=== PATIENT | female | born 1940 | race Caucasian/White ===

== ENCOUNTER → 2016-07-13 | Outpatient (CLI) | payer MEDICARE, BC ==
[~2016-07-13] MED LIST: ALPRAZOLAM0.5 MG PO; ARIMIDEX1 MG PO; ASPIRIN 81M81 MG/TA2 PO; CALCIUM 600 PLU1 TAB PO; CALCIUM 6001 TA1 PO; DIPYRIDAMOLE PO; LAMICTAL 100MG100 MG PO; LAMICTAL ODT50 MG TL; LAMICTAL XR50 MG PO; LIPITOR 10MG10 MG PO; MELAT3MGTAB PO; MELATONIN; MULTI VITAMINS1 TAB PO; MULTIPLE VITAMI1 TAB PO; NAMENDA 10MG TA10 MG PO; NAMENDA XR 28MG PO; NORCO 325 MG-51 TAB PO; NORMODYNE100 MG PO; OSCAL 500 TAB500 MG PO; PERSANTINE PO; PRILOSEC 20MG20 MG PO; TRANDATE 100MG100 MG PO; TYLENOL 325MG325 MG PO; UNKOWN; VITAMIN D 1001000 IU PO; VITAMIN D31000 IU PO; XANAX 0.5MG0.5 MG PO; ZOCOR 20MG20 MG PO; ZOCOR 40MG40 MG PO; ZOLOFT 25MG25 MG PO; ZOLOFT25 MG PO
== END ==
LOC: BHSO 13:56
DX: F31.81 Bipolar II disorder (principal)

== ENCOUNTER → 2016-09-05 | Outpatient (CLI) | payer MEDICARE, BC | LOC: MC.RAD 10:50 | DX: Z12.31 Encounter for screening mammogram for malignant neoplasm of breast (principal) ==

== ENCOUNTER → 2017-04-11 | Outpatient (CLI) | payer MEDICARE, BC | LOC: BHSO 14:54 | DX: F31.73 Bipolar disorder, in partial remission, most recent episode manic (principal) ==

== ENCOUNTER → 2017-09-06 | Outpatient (CLI) | payer MEDICARE, BC | LOC: MC.RAD 11:19 | DX: Z12.31 Encounter for screening mammogram for malignant neoplasm of breast (principal); Z98.890 Other specified postprocedural states ==

== ENCOUNTER → 2018-02-15 | Outpatient (CLI) | payer MEDICARE, BC | LOC: BHSO 13:22 | DX: F33.42 Major depressive disorder, recurrent, in full remission (principal) | CPT/HCPCS: G0463 ==

== ENCOUNTER → 2018-08-15 | Outpatient (CLI) | payer MEDICARE, BC | LOC: BHSO 13:01 | DX: F33.42 Major depressive disorder, recurrent, in full remission (principal) | CPT/HCPCS: G0463 ==

== ENCOUNTER 2018-08-31 13:48 | Outpatient (CLI) | payer MEDICARE, BC ==
[2018-08-31 15:10] VITALS: BP 104/60; PULSE 70; TEMP 98
[2018-08-31] MEDS ORDERED: RECLAST5 MG/100 M IV (17:32)
== END 2018-08-31 15:40 | disposition home or self-care (01) ==
LOC: EUO 13:48
DX: M81.0 Age-related osteoporosis without current pathological fracture (principal)
CPT/HCPCS: J3489

== ENCOUNTER → 2018-10-30 | Outpatient (CLI) | payer MEDICARE, BC ==
[~2018-10-30] MED LIST changes: +RECLAST5 MG/100 M IV
== END ==
LOC: MC.RAD 10-02 11:15
DX: Z12.31 Encounter for screening mammogram for malignant neoplasm of breast (principal); Z85.3 Personal history of malignant neoplasm of breast; Z98.890 Other specified postprocedural states

== ENCOUNTER → 2019-02-13 | Outpatient (CLI) | payer MEDICARE, BC ==
[~2019-02-13] MED LIST changes: +ANTIVERT 25MG25 MG PO; +BENADRYL25 M2 PO
== END ==
LOC: BHSO 12:58
DX: F33.42 Major depressive disorder, recurrent, in full remission (principal)
CPT/HCPCS: G0463

== ENCOUNTER 2019-02-18 07:58 | Emergency (ER) | payer MEDICARE, BC ==
[~2019-02-18] VITALS: Ht 167.6 cm; Wt 68.2 kg
[~2019-02-18 07:58] MED LIST changes: -ANTIVERT 25MG25 MG PO; -BENADRYL25 M2 PO
[2019-02-18 08:42] LABS: BASO % 0.5 % (0.0-2.0); EOS # 0.2 (0.0-0.7); GRAN # 4.4 (1.4-6.5); GRAN % 70.3 % (42.2-75.2); HEMOGLOBIN 11.7 g/dl (12.5-16.0); MEAN CELL VOLUME 92 fl (80.0-100.0); MEAN CORPUSCULAR HEMOGLOBIN 30 pg (27.0-31.0); MEAN CORPUSCULAR HGB CONC 32 g/dl (33.0-37.0); MEAN PLATELET VOLUME 11.2 fl (7.4-10.4); MONO # 0.6 (0.1-0.6); PLATELET COUNT 174 K/mm3 (130-400); RED BLOOD COUNT 3.96 M/mm3 (4.10-5.30); REDCELL DISTRIBUTION WIDTH-CV 14.2 % (11.5-14.5)
[2019-02-18 08:43] LABS: INR 0.9 (0.8-3.0)
[2019-02-18 08:49] LABS: ALANINE AMINOTRANSFERASE 14 U/L (9-52); ALBUMIN 4.3 gm/dL (3.5-5.0); ALKALINE PHOSPHATASE 105 U/L (50-136); ANION GAP 12 mmol/L (7-16); AST,SGOT 26 U/L (15-37); BILIRUBIN,TOTAL 0.6 mg/dL (0.0-1.0); BLOOD UREA NITROGEN 14 mg/dL (7-17); CALCIUM 9.8 mg/dL (8.4-10.2); CARBON DIOXIDE 28 mmol/L (22-30); CHLORIDE 101 mmol/L (98-107); GLUCOSE 102 mg/dL (74-106); POTASSIUM 4.2 mmol/L (3.4-5.0); SODIUM 141 mmol/L (137-145); TOTAL PROTEIN 7.6 gm/dL (6.4-8.2)
[2019-02-18 08:57] LABS: HEMATOCRIT 36.4 % (37.0-47.0)
[2019-02-18 09:01] LABS: TROPONIN-I < 0.012 ng/mL (0.000-0.035)
[2019-02-18] MEDS ORDERED: BENADRYL25 M2 PO (09:01)
[2019-02-18 09:43] LABS: COLLECTION METHOD CLEAN CATCH
[2019-02-18 09:55] LABS: PH 7 (5-8); SQUAMOUS EPITHELIAL 0-2 /hpf; URINE APPEARANCE Clear; URINE BACTERIA None Seen /hpf; URINE BILIRUBIN Negative (NEGATIVE); URINE BLOOD Negative (NEGATIVE); URINE COLOR Straw; URINE GLUCOSE Negative (NEGATIVE); URINE KETONE Negative (NEGATIVE); URINE LEUKOCYTE ESTERASE 1+ (NEGATIVE); URINE NITRATE Negative (NEGATIVE); URINE PROTEIN(semi-quant) Negative (NEGATIVE); URINE RBC 0-2 /hpf; URINE UROBILINOGEN Negative (NEGATIVE)
[2019-02-18 15:00] VITALS: TEMP 98.4
[2019-02-18] MEDS ORDERED: ANTIVERT 25MG25 MG PO (15:00)
[2019-02-18 15:08] VITALS: BP 117/78; PULSE 76
--- NOTE | 2019-02-20 10:33 | NUR ---
(02/18) DIRECTOR OPERATING student and Worker responded to a social worker clinical referral. The patient and the patient's sister were inquiring about home health services and other resources that the patient may qualify for. APRIL murguia contacted [facility] at [facility] and the patient had an appointment 02/19 for a follow up due to this ED visit. APRIL murguia faxed patient notes to [facility]. APRIL murguia collaborated the above information with the patient's nurse.
== END 2019-02-18 15:20 | disposition home or self-care (01) ==
LOC: COL.ER 07:58
PROVIDERS: Emergency Medicine
DX: R42 Dizziness and giddiness (principal); Z79.82 Long term (current) use of aspirin
CPT/HCPCS: J2060; J2405; J7030; Q9967

== ENCOUNTER 2019-09-26 14:03 | Outpatient (CLI) | payer MEDICARE, BC ==
[~2019-09-26] VITALS: Ht 167.6 cm; Wt 69.6 kg
[~2019-09-26 14:03] MED LIST changes: +ANTIVERT 25MG25 MG PO; +BENADRYL25 M2 PO
[2019-09-26 14:56] VITALS: BP 121/101; PULSE 64; TEMP 98.8
== END 2019-09-26 16:13 | disposition home or self-care (01) ==
LOC: EUO 14:03
DX: M81.0 Age-related osteoporosis without current pathological fracture (principal)
CPT/HCPCS: J3489

== ENCOUNTER → 2019-10-31 | Outpatient (CLI) | payer MEDICARE, BC | LOC: BHSO 11:01 | DX: F41.1 Generalized anxiety disorder (principal) | CPT/HCPCS: G0463 ==

== ENCOUNTER → 2019-12-26 | Outpatient (CLI) | payer MEDICARE, BC | LOC: MC.RAD 13:21 | DX: Z12.31 Encounter for screening mammogram for malignant neoplasm of breast (principal) ==

== ENCOUNTER 2020-09-28 13:39 | Outpatient (CLI) | payer MEDICARE, BC ==
[~2020-09-28] VITALS: Ht 167.6 cm; Wt 74.0 kg
[2020-09-28 14:00] VITALS: BP 136/68; PULSE 75; TEMP 98
== END 2020-09-28 15:59 | disposition home or self-care (01) ==
LOC: EUO 13:39
DX: M81.0 Age-related osteoporosis without current pathological fracture (principal)
CPT/HCPCS: J3489

== ENCOUNTER → 2020-10-08 | Outpatient (CLI) | payer MEDICARE, BC | LOC: COL.RAD 13:03 | DX: M71.349 Other bursal cyst, unspecified hand (principal); R22.31 Localized swelling, mass and lump, right upper limb ==

== ENCOUNTER → 2021-02-01 | Outpatient (CLI) | payer MEDICARE, BC | LOC: MC.RAD 11:03 | DX: Z12.31 Encounter for screening mammogram for malignant neoplasm of breast (principal) ==

== ENCOUNTER 2021-10-01 15:04 | Outpatient (CLI) | payer MEDICARE, BC ==
[~2021-10-01] VITALS: Ht 167.6 cm; Wt 70.6 kg
[2021-10-01 15:33] VITALS: BP 132/77; PULSE 69; TEMP 97.8
== END 2021-10-01 16:12 ==
LOC: EUO 15:04
DX: M81.0 Age-related osteoporosis without current pathological fracture (principal)
CPT/HCPCS: J3489

== ENCOUNTER → 2022-02-02 | Outpatient (CLI) | payer MEDICARE, BC | LOC: MC.RAD 12:50 | DX: Z12.31 Encounter for screening mammogram for malignant neoplasm of breast (principal) ==

== ENCOUNTER 2023-07-28 18:29 | Emergency (ER) | payer MEDICARE, BC ==
[~2023-07-28] VITALS: Ht 167.6 cm; Wt 67.7 kg
[~2023-07-28 18:29] MED LIST changes: +CENTRUM SILVER1 TAB PO; +MELATONIN5 M1 SL; +OSTEO-BI-FLEX 21 TAB PO; +VITAMIN D31000 I1 PO; +ZOLOFT 50MG50 MG PO
[2023-07-28 18:30] VITALS: TEMP 98.8
[2023-07-28] MEDS ORDERED: hydrALAZINE 20 MG/ML 1 ML VIAL IV ONE (18:45)
[2023-07-28 19:15] LABS: BASO % 0.4 % (0.0-2.0); EOS # 0.1 K/mm3 (0.0-0.7); EOS % 2.1 % (0.0-4.0); GRAN # 4.8 K/mm3 (1.4-6.5); GRAN % 70.4 % (42.2-75.2); HEMOGLOBIN 12.8 g/dl (12.5-16.0); LYMPH # 1.2 K/mm3 (1.2-3.4); LYMPH % 17.4 % (20.0-51.0); MEAN CELL VOLUME 92 fl (80.0-100.0); MEAN CORPUSCULAR HEMOGLOBIN 30 pg (27-31); MEAN CORPUSCULAR HGB CONC 33 g/dl (33.0-37.0); MEAN PLATELET VOLUME 11.6 fl (7.4-10.4); MONO # 0.7 K/mm3 (0.1-0.6); MONO % 9.6 % (1.7-9.3); PLATELET COUNT 183 K/mm3 (130-400); RED BLOOD COUNT 4.24 M/mm3 (4.10-5.30); REDCELL DISTRIBUTION WIDTH-CV 14.1 % (11.5-14.5)
[2023-07-28 19:31] LABS: ALANINE AMINOTRANSFERASE 18 U/L (0-55); ALBUMIN 4.3 gm/dL (3.4-4.8); ALKALINE PHOSPHATASE 103 U/L (40-150); ANION GAP 11 mmol/L (7-16); AST,SGOT 23 U/L (5-34); BILIRUBIN,TOTAL 0.6 mg/dL (0.2-1.2); BLOOD UREA NITROGEN 16 mg/dL (10-20); C-REACTIVE PROTEIN 0.09 mg/dL (0.00-0.50); CALCIUM 11.5 mg/dL (8.4-10.2); CARBON DIOXIDE 26 mmol/L (23-31); CHLORIDE 104 mmol/L (98-107); CREATININE, serum 0.79 mg/dL (0.57-1.11); GLUCOSE 99 mg/dL (70-99); LIPASE 35 U/L (8-78); POTASSIUM 4.2 mmol/L (3.5-4.5); SODIUM 141 mmol/L (136-145); TOTAL PROTEIN 7.6 gm/dL (6.2-8.1)
[2023-07-28 19:39] LABS: TROPONIN-I < 0.010 ng/mL (0.00-0.033)
[2023-07-28] MEDS ORDERED: Meclizine 25 MG TAB PO ONE (19:45)
[2023-07-28 21:32] LABS: COLLECTION METHOD CLEAN CATCH
[2023-07-28 21:39] LABS: URINE APPEARANCE CLEAR (CLEAR/HAZY); URINE BLOOD NEGATIVE (NEGATIVE); URINE COLOR YELLOW (YELLOW); URINE GLUCOSE NEGATIVE (NEGATIVE); URINE KETONE NEGATIVE (NEGATIVE); URINE NITRATE NEGATIVE (NEGATIVE); URINE PROTEIN(semi-quant) NEGATIVE (NEGATIVE); URINE UROBILINOGEN 0.2 E.U/dL (0.2-1.0)
[2023-07-28 22:39] VITALS: BP 155/83; PULSE 78
== END 2023-07-28 22:56 | disposition home or self-care (01) ==
LOC: COL.ER 18:29
PROVIDERS: Nurse Practitioner Primary Care
DX: R42 Dizziness and giddiness (principal); R19.7 Diarrhea, unspecified
CPT/HCPCS: J0360

== ENCOUNTER → 2024-02-27 | Outpatient (CLI) | payer MEDICARE, BC | LOC: MC.RAD 10:04 | DX: Z12.31 Encounter for screening mammogram for malignant neoplasm of breast (principal) ==